=== PATIENT | female | born 1975 | race Caucasian/White ===

== ENCOUNTER 2020-04-23 15:27 | Emergency (ER) | payer OTHER ==
[~2020-04-23] VITALS: Ht 170.2 cm; Wt 90.7 kg
== END 2020-04-23 16:46 | disposition home or self-care (01) ==
LOC: ER 15:27
DX: R07.89 Other chest pain (principal); R06.02 Shortness of breath; Z03.818 Encounter for observation for suspected exposure to other biological agents ruled out

== ENCOUNTER 2021-10-26 15:53 | Emergency (ER) | payer OTHER ==
[~2021-10-26] VITALS: Ht 167.6 cm; Wt 77.1 kg
== END 2021-10-26 19:51 | disposition home or self-care (01) ==
LOC: ER 15:53
DX: R10.12 Left upper quadrant pain (principal)